=== PATIENT | male | born 1965 | race Caucasian/White ===

== ENCOUNTER 2020-03-17 13:30 | Inpatient (IN) | payer SELFPAY ==
[~2020-03-17 13:30] MED LIST: Iopamidol-370 76% 500 ML 1 ML ONE
--- NOTE | 2020-03-17 15:52 | CT ---
CT ANGIOGRAM THORAX WITH IV CONTRAST AND 3-D RECONSTRUCTIONS CLINICAL INDICATION: Dyspnea. Hyponatremia and hypokalemia. COMPARISON: None FINDINGS: Pulmonary arteries: No filling defects are seen in the pulmonary arteries to suggest a pulmonary embo jason. Aorta: The aorta is normal in caliber without evidence of an aortic dissection. Lungs: Minimal bilateral pleural effusions and associated atelectasis are present. No pulmonary nodul e or mass is seen. Mediastinum: There is no evidence of lymphadenopathy. Thyroid gland: Normal CT appearance. Osseous structures: No acute process. Chest wall: No abnormality visualized. Upper abdomen: Moderate amount of intraperitoneal free fluid is seen in the visualized upper abdomen. The liver demonstrates diminished attenuation relative to the spleen suggesting fatty infiltration. IMPRESSION: 1. No CT evidence of a pulmonary embolus. 2. Minimal bilateral pleural effusions and atelectasis. 3. Moderate ascites partially imaged.
[2020-03-17 17:49] LABS: ALT (SGPT) 12 U/L (8-55); AST (SGOT) 65 U/L (5-34); Albumin 3.4 g/dL (3.5-5.0); Alkaline Phosphatase 87 U/L (40-110); Anion Gap 14 mmol/L (10-20); BUN (Urea Nitrogen) 6 mg/dL (8.4-25.7); Bilirubin, Total 1.8 mg/dL (0.2-1.2); Calc. Creatinine Clearance 0 mL/min (70-130); Calcium 7.7 mg/dL (7.8-10.44); Carbon Dioxide 26 mmol/L (22-29); Chloride 83 mmol/L (98-107); Estimated GFR-MDRD Greater than 90; Globulin 3.6 g/dL (2.4-3.5); Glucose 149 mg/dL (70-105); Potassium 3.1 mmol/L (3.5-5.1); Sodium 120 mmol/L (136-145)
[2020-03-17] MEDS ORDERED: Acetaminophen 325 MG TAB PO PRN (19:19)
[2020-03-17] MEDS ORDERED: Ondansetron ODT 4 MG TAB SL PRN (19:19)
[2020-03-17] MEDS ORDERED: Ondansetron PF 4 MG/2 ML Vial IVP PRN (19:19)
[2020-03-17] MEDS ORDERED: Diazepam 5 MG TAB PO PRN (19:20)
[2020-03-17] MEDS ORDERED: Sodium Chloride 0.9% (PF) 10 ML VIAL FS PRN (19:22)
[2020-03-17] MEDS ORDERED: Diazepam 5 MG TAB PO SCH (19:30)
--- NOTE | 2020-03-17 20:09 | RAD ---
Radiograph abdomen one view: 03/17/2020 7:16 PM HISTORY: 35 year old male with lack of bowel movement for 7 days. Rule out bowel obstruction. COMPARISON: None FINDINGS: There is a small amount of gas in the stomach and the nondistended transverse colon. There is a moder ate to large amount of bowel gas in multiple small bowel loops located centrally within the abdominal cavity. The central location of the bowel gas suggests that there is free intraperitoneal f luid. There is excreted IV contrast material in nondilated renal collecting systems faintly, and in the urinary bladder, from CTA of chest performed earlier today. IMPRESSION: 1. Evidence for ascites. 2. Nonspecific bowel gas pattern without overt signs of bowel obstruction.
[2020-03-17] MEDS ORDERED: Famotidine/PF 20 mg/2ml Vial SLOW IVP SCH (21:00)
[2020-03-17 21:51] LABS: Hemoglobin 8.1 g/dL (14.0-18.0)
[2020-03-17 22:11] LABS: Iron 49 ug/dL (65-175); Iron Binding Capacity, Total 173 mcg/dL (261-462); Magnesium 1.1 mg/dL (1.6-2.6)
[2020-03-17 22:14] LABS: Troponin I 0.012 ng/mL (< 0.028)
[2020-03-17 22:18] LABS: Phosphorus 1.6 mg/dL (2.3-4.7)
[2020-03-17 22:24] LABS: Troponin I 0.015 ng/mL (< 0.028)
[2020-03-17 22:31] LABS: Ferritin 848.67 ng/mL (22-322)
[2020-03-17] MEDS ORDERED: Electrolyte Replacement Protocol FS SCH (22:45)
[2020-03-17 22:49] LABS: Iron 49 ug/dL (65-175); Iron Binding Capacity, Total 173 mcg/dL (261-462)
[2020-03-18] MEDS: Pantoprazole 40 MG VIAL IVP SCH ×3 (00:20→21:13)
[2020-03-18] MEDS ORDERED: Pantoprazole 40 MG VIAL IVP SCH (00:30)
[2020-03-18] MEDS ORDERED: Diazepam 5 MG TAB PO SCH (00:30)
[2020-03-18] MEDS ORDERED: Diazepam 5 MG TAB PO PRN (04:00)
[2020-03-18 04:46] LABS: #Lymphocytes 0.7 thou/uL (1.20-3.40); #Monocytes 0.6 thou/uL (0.11-0.59); #Neutrophils 7.3 thou/uL (1.40-6.50); %Basophils 0.1 % (0.0-1.0); %Eosinophils 0.1 % (0.0-10.0); %Lymphocytes 7.6 % (21.0-51.0); %Monocytes 6.6 % (0.0-10.0); %Neutrophils 85.6 % (42.0-75.0); Hemoglobin 7.2 g/dL (14.0-18.0); Mean Corpuscular HGB CONC 32.8 g/dL (32.0-36.0); Mean Corpuscular Hemoglobin 33.7 pg (27.0-31.0); Mean Platelet Volume 7.7 fL (7.4-10.4); Platelet Count 171 thou/uL (130-400); RBC Distribution Width 12.2 % (11.5-14.5); Red Blood Cell (RBC) Count 2.13 mill/uL (4.70-6.10); White Blood Cell (WBC) Count 8.5 thou/uL (4.8-10.8)
[2020-03-18 05:09] LABS: ALT (SGPT) 12 U/L (8-55); AST (SGOT) 53 U/L (5-34); Albumin 3.1 g/dL (3.5-5.0); Alkaline Phosphatase 80 U/L (40-110); Anion Gap 12 mmol/L (10-20); BUN (Urea Nitrogen) 7 mg/dL (8.4-25.7); Bilirubin, Total 1.1 mg/dL (0.2-1.2); Calc. Creatinine Clearance 84 mL/min (70-130); Calcium 7.8 mg/dL (7.8-10.44); Carbon Dioxide 27 mmol/L (22-29); Chloride 88 mmol/L (98-107); Estimated GFR-MDRD Greater than 90; Globulin 3.4 g/dL (2.4-3.5); Glucose 138 mg/dL (70-105); Potassium 3.1 mmol/L (3.5-5.1); Protein, Total 6.5 g/dL (6.0-8.3); Sodium 124 mmol/L (136-145)
--- NOTE | 2020-03-18 05:47 | PDOC.HHP ---
Hospitalist HPI - History of Present Illness Chest pain History of Present Illness: Patient presents complaining of chest pain. Poor historian and unable to pin point how often the pain has occurred or describe it. He states it is non- radiating. At present he is pain free. At its worse its been a 7/10 in severity. He is unsure how long it lasts. States he has had some shortness of breath as well. Denies having a cough or hemoptysis. No headaches or dizziness. Has not noted any lower extremity pain or swelling. Admits to drinking 4-5 beers a day. Denies any history of withdrawal seizures/ tremors. Reports being afebrile in recent days. No recent diarrhea, nausea or vomiting. Complains of constipation and has not had a bowel movement in several days. ED Course: Patient transferred from [facility] ED where he was treated for low potassium and low sodium. He had an EKG done showing normal ST segments and T waves. COVID testing was done and came back negative. He also had a CTA of the chest showing no evidence of PE, minimal bilateral pleural effusions and atelectasis. Also noted to have moderate ascites. Labs were notable for low potassium and low sodium. Hospitalist ROS - Review of Systems Constitutional: denies: fever, chills, sweats, weakness, malaise, other Eyes: denies: pain, vision change, conjunctivae inflammation, eyelid inflammation, redness, other ENT: denies: ear pain, ear discharge, nose pain, nose discharge, nose congestion , mouth pain, mouth swelling, throat pain, throat swelling, other Respiratory: reports: shortness of breath. denies: cough, dry, hemoptysis, SOB with excertion, pleuritic pain, sputum, wheezing, other Cardiovascular: reports: chest pain. denies: palpitations, orthopnea, paroxysmal noc. dyspnea, edema, light headedness, other Gastrointestinal: reports: other (abdominal dstention, long standing). denies: nausea, vomiting, abdominal pain, diarrhea, constipation, melena, hematochezia Genitourinary: denies: dysuria, frequency, incontinence, hematuria, retention, other Musculoskeletal: denies: neck pain, shoulder pain, arm pain, back pain, hand pain, leg pain, foot pain, other Skin: denies: rash, lesions, miriam, bruising, other Neurological: denies: weakness, numbness, incoordination, change in speech, confusion, seizures, other - Medication Medications: Active Medications Generic Name Dose Route Start Last Admin Trade Name Duy PRN Reason Stop Dose Admin Pantoprazole Sodium 40 mg 03/17/20 21:00 03/18/20 00:20 Protonix IVP Not Given Q12HR [facility] Hospitalist History - Past Medical History Source: patient Cardiac: reports: no pertinent history Pulmonary: reports: no pertinent history DIGITAL AD TRAFFICKER: reports: no pertinent history Gastrointestinal: reports: no pertinent history Heme/Onc: reports: no pertinent history Hepatobiliary: reports: no pertinent history Psych: reports: no pertinent history Musculoskeletal: reports: no pertinent history Rheumatologic: reports: no pertinent history Infectious Disease: reports: no pertinent history ENT: reports: no pertinent history Renal/: reports: no pertinent history Endocrine: reports: no pertinent history Dermatology: reports: no pertinent history - Past Surgical History Past Surgical History: reports: no pertinent history - Family History Family History: reports: no pertinent history - Social History Smoking Status: Never smoker Alcohol: reports: Heavy Drugs: reports: none Living Situation: Alone Activity level: independent ambulation - Exam General Appearance: NAD Eye: PERRL, anicteric sclera ENT: normocephalic atraumatic, dry oral mucosa Neck: supple, no lymphadenopathy Heart: RRR, normal peripheral pulses Respiratory: CTAB, no wheezes, no rales, no ronchi, normal chest expansion Gastrointestinal: soft, non-tender, normal bowel sounds, no palpable masses, no guarding, no rigidity Gastrointestinal - other findings: distention Extremities: no edema Skin: normal turgor, no lesions, no rashes Neurological: cranial nerve grossly intact, normal sensation to touch, no weakness, no focal deficits Hospitalist Results - Labs Result Diagrams: 03/18/20 04:16 03/18/20 04:16 Lab results: WBC 8.5 thou/uL (4.8-10.8) 03/18/20 04:16 Hgb 7.2 g/dL (14.0-18.0) L 03/18/20 04:16 Hct 21.9 % (42.0-52.0) L 03/18/20 04:16 MCV 103.0 fL (78.0-98.0) H 03/18/20 04:16 Plt Count 171 thou/uL (130-400) 03/18/20 04:16 Neutrophils % 85.6 % (42.0-75.0) H 03/18/20 04:16 Sodium 124 mmol/L (136-145) L 03/18/20 04:16 Potassium 3.1 mmol/L (3.5-5.1) L 03/18/20 04:16 Chloride 88 mmol/L (98-107) L 03/18/20 04:16 Carbon Dioxide 27 mmol/L (22-29) 03/18/20 04:16 BUN 7 mg/dL (8.4-25.7) L 03/18/20 04:16 Creatinine 0.77 mg/dL (0.7-1.3) 03/18/20 04:16 Glucose 138 mg/dL (70-105) H 03/18/20 04:16 Calcium 7.8 mg/dL (7.8-10.44) 03/18/20 04:16 Total Bilirubin 1.1 mg/dL (0.2-1.2) 03/18/20 04:16 AST 53 U/L (5-34) H 03/18/20 04:16 ALT 12 U/L (8-55) 03/18/20 04:16 Alkaline Phosphatase 80 U/L (40-110) 03/18/20 04:16 Troponin I 0.015 ng/mL (< 0.028) 03/17/20 21:29 B-Natriuretic Peptide 101.4 pg/mL (0-100) H 03/17/20 21:30 Serum Total Protein 6.5 g/dL (6.0-8.3) 03/18/20 04:16 Albumin 3.1 g/dL (3.5-5.0) L 03/18/20 04:16 - Radiology Interpretation Chest x-ray Status: report reviewed by il Hospitalist H&P A/P - Problem (1) Chest pain Code(s): R07.9 - CHEST PAIN, UNSPECIFIED Status: Acute (2) Cough Code(s): R05 - COUGH Status: Acute (3) Shortness of breath Code(s): R06.02 - SHORTNESS OF BREATH Status: Acute (4) Abdominal ascites Code(s): R18.8 - OTHER ASCITES Status: Acute (5) Anemia Code(s): D64.9 - ANEMIA, UNSPECIFIED Status: Acute (6) Hyponatremia Code(s): E87.1 - HYPO-OSMOLALITY AND HYPONATREMIA Status: Acute (7) Hypokalemia Code(s): E87.6 - HYPOKALEMIA Status: Acute - Plan Plan: Cardiac monitoring. Trend troponins. BNP added on to labs as well as Mg+. Repeat electrolytes and replace as needed. Obtain urine Na+, urine K+ and urine osmolality. Nephrology consult placed. Per Dr. Zeng will hold further IV fluids, to be managed by Nephrology team. Given anemia, check stools for occult blood. Will obtain KUB given distention with no BM in days. Type & Screen, repeat H/H. Will start IV protonix. Iron studies ordered. History of heavy alcohol use. ASE protocol ordered. DVT prophylaxis with mechanical SCDs. CODE STATUS FULL No MPOA established.
[2020-03-18] MEDS ORDERED: Potassium Phosphate 15 MMOL in Sodium Chloride 0.9% 100 ML IVPB SCH (06:45)
[2020-03-18] MEDS ORDERED: Potassium Chloride 20 MEQ in Premix Bag 1 BAG IVPB SCH (07:00)
[2020-03-18] MEDS ORDERED: Electrolyte Replacement Protocol FS PRN (08:00)
[2020-03-18] MEDS ORDERED: Magnesium Sulfate 4 GM in Sodium Chloride 0.9% 250 ML 250 ML IVPB SCH (08:00)
[2020-03-18 08:21] LABS: Phosphorus 1.3 mg/dL (2.3-4.7)
[2020-03-18] MEDS: Potassium Chloride 20 MEQ TAB PO SCH ×3 (08:52→15:29)
[2020-03-18] MEDS: Magnesium Oxide 400 MG TAB PO SCH (08:52)
[2020-03-18] MEDS: Folic Acid 1 MG TAB PO SCH (08:53)
[2020-03-18] MEDS: Multivitamin W/ Minerals 1 TAB PO SCH (08:54)
[2020-03-18] MEDS: Thiamine 100 MG TAB PO SCH (08:54)
--- NOTE | 2020-03-18 14:19 | CON ---
DATE OF CONSULTATION: 03/18/2020 SERVICE: Nephrology. REASON FOR CONSULTATION: Hyponatremia and hypokalemia. REQUESTING PROVIDER: TORY Quinn HISTORY OF PRESENT ILLNESS: A 55-year-old male with known history of chronic alcohol use, admitted on transfer from [facility] for further evaluation and treatment of chest pain. The patient reportedly presented at the transferring facility with acute onset of worsening chest pain associated with shortness of breath. Symptoms reportedly have improved. He also was found to have hyponatremia and hypokalemia, necessitating Nephrology consult. The patient denied nausea or vomiting, fever, chills, or leg swelling. He admitted to abdominal enlargement, which has improved. He, however, has not had a bowel motion in about 2 weeks. He also reported weight loss of about 10 pounds in the last few months. He admitted to poor oral intake since about several months corresponding to when his spouse . He admitted using alcohol every day about minimum of 3 beers to about 5 beers depending on the situation. He denied prior alcohol withdrawal symptoms or seizures. PAST MEDICAL HISTORY: Chronic alcohol use. PAST SURGICAL HISTORY: None. FAMILY HISTORY: The patient lives alone currently. He reported history of diabetes and coronary artery disease in mother and unknown cancer in father. SOCIAL HISTORY: The patient lives alone. Spouse is . Drinks alcohol daily. Denied recreational drug use or smoking. ALLERGIES: NO KNOWN DRUG ALLERGIES REPORTED. MEDICATIONS: Prior to hospital medications, none. REVIEW OF SYSTEMS: A 12-point review of system performed was negative other than pertinent positives and negatives included in the history of present illness. PHYSICAL EXAMINATION: VITAL SIGNS: Temperature 97.0, pulse 86, respiratory rate 16, SpO2 of 99% on room air, and blood pressure is 111/69. GENERAL: Thin, small-framed middle-age male, in no obvious distress. Afebrile, anicteric, acyanotic. HEENT: Normocephalic and atraumatic. Oral mucosa is moist. NECK: Supple with no JVD. CARDIOVASCULAR: Regular rhythm and rate with normal heart sounds 1 and 2. RESPIRATORY: Fair air entry bilaterally with no obvious crackle or rhonchi or use of accessory muscles. Bibasilar transmitted breath sound is noted. GI: Full, soft, nontender, nondistended with normal bowel sounds. MUSCULOSKELETAL: Extremities, grossly normal looking, atraumatic with no obvious edema or erythema. Distal pulses are palpable. EPIC INTERFACE ANALYST: Conscious, alert, and oriented x3 with appropriate mental status. The patient is conversational with good insight. Cranial nerves 2 through 12 are grossly intact. Very mild tremor noted. DIAGNOSTIC DATA: CBC today showed WBC count of 8.5, hemoglobin of 7.2, MCV of 103, platelet of 171. Note that hemoglobin has gone down from 8.0 on presentation to 7.2 currently. Chemistry today showed sodium 124, potassium 3.1, chloride 88, CO2 of 27, BUN 7, creatinine 0.77, glucose 138, calcium 7.8, bilirubin 1.1, AST 53, ALT 12, alkaline phosphatase 80, total protein 6.5, albumin 3.1. Note that sodium was 123 on presentation, but it did dip to 120 before increasing to 124 earlier this morning. The potassium on presentation also was 3.0. Magnesium currently is 1.4, phosphorus is 1.3. Serum osmolality on presentation was 261 while urine osmolality was 253. Urine sodium was less than 20. ASSESSMENT: 1. Hyponatremia: Most likely due to poor solute intake with chronic use of alcohol consistent with beer potomania. Chronic hypokalemia also limited the ability of the kidney to excrete free water. 2. Hypokalemia due to poor oral intake and presumed alcohol-induced diuresis. 3. Hypomagnesemia from poor oral intake. 4. Hypophosphatemia from poor oral intake. 5. Chronic alcohol abuse. High risk for alcohol withdrawal. 6. Chest pain: Resolved. 7. Protein-calorie malnutrition. PLAN: 1. I agree with discontinuation of normal saline. 2. We will replete serum potassium and magnesium. This will help the kidneys to excrete free water. We will plan to give at least 120 mEq of potassium chloride today. 3. We will also replete serum phosphorus with potassium phosphate. 4. We will give magnesium sulfate to correct hypomagnesemia. 5. We will also give a Fleet enema as the patient is constipated for several weeks. 6. Alcohol withdrawal treatment as per primary attending. 7. We will monitor electrolytes serially and provide further supplementation as needed. 8. Further treatment to follow depending on hospital course. 9. There is no need for IV fluids at this point as the patient is euvolemic. 10. [place] solute intake is advised. 11. We will also start the patient on Ensure. Job ID: [id number]
[2020-03-18 14:52] LABS: Anion Gap 15 mmol/L (10-20); BUN (Urea Nitrogen) 8 mg/dL (8.4-25.7); Calc. Creatinine Clearance 81 mL/min (70-130); Calcium 8.3 mg/dL (7.8-10.44); Carbon Dioxide 25 mmol/L (22-29); Chloride 91 mmol/L (98-107); Estimated GFR-MDRD Greater than 90; Glucose 106 mg/dL (70-105); Potassium 3.9 mmol/L (3.5-5.1); Sodium 127 mmol/L (136-145)
--- NOTE | 2020-03-18 21:34 | PDOC.HOSPP ---
- Subjective Encounter Date: 03/18/20 Encounter Time: 09:00 Subjective: poor, unreliable historian, versions changed with different physician. this morning, requests to leave. explained his conditions and the need for further treatment. - Objective Vital Signs & Weight: Vital Signs (12 hours) Temp Pulse Resp BP Pulse Ox 03/18/20 17:11 98.2 F 90 16 99/67 97 03/18/20 13:00 97.2 F L 88 16 100/60 100 Weight Admit Weight 123 lb 1.6 oz Weight 123 lb 1.6 oz I&O: 03/17/20 03/18/20 03/19/20 06:59 06:59 06:59 Intake Total 1300 Balance 1300 Result Diagrams: 03/18/20 04:16 03/18/20 14:21 Hospitalist ROS - Review of Systems Constitutional: denies: fever, chills, sweats Respiratory: denies: cough, dry, shortness of breath Cardiovascular: denies: chest pain, palpitations, orthopnea, paroxysmal noc. dyspnea Gastrointestinal: denies: nausea, vomiting, abdominal pain, diarrhea Genitourinary: denies: dysuria, frequency, incontinence - Medication Medications: Active Medications Generic Name Dose Route Start Last Admin Trade Name Freq PRN Reason Stop Dose Admin Folic Acid 1 mg 03/18/20 09:00 03/18/20 08:53 Folvite PO 1 mg DAILY BHUMIKA Administration Iron/Minerals/Multivitamins 1 tab 03/18/20 09:00 03/18/20 08:54 Theragran M PO 1 tab DAILY BHUMIKA Administration Magnesium Oxide 400 mg 03/18/20 09:00 03/18/20 08:52 Magnesium Oxide PO 400 mg DAILY BHUMIKA Administration Pantoprazole Sodium 40 mg 03/17/20 21:00 03/18/20 21:13 Protonix IVP 40 mg Q12HR BHUMIKA Administration Thiamine HCl 100 mg 03/18/20 09:00 03/18/20 08:54 Thiamine PO 100 mg DAILY BHUMIKA Administration - Exam General Appearance: NAD, awake alert Eye: PERRL, anicteric sclera Neck: no JVD Heart: RRR, no murmur, no gallops, no rubs Respiratory: CTAB, no wheezes, no rales, no ronchi Gastrointestinal: non-tender, normal bowel sounds Gastrointestinal - other findings: distended, shifting dulness Extremities: no edema Psychiatric: normal affect, normal behavior, A&O x 3 Hosp A/P - Plan #noncardiac chest pain -resolved; trop and ekg not c/w ACS #constipation -patient reports not having bowel movement for weeks but poor historian; Abd x- ray shows no significant fecal load, impaction, or obstruction -senna/doc #hypoosmolal hyponatremia -likely reduced oral intake in cotext of alcohol abuse; beer potomania -neprhology onboard, appreciated recs #macrocytic anemia #ascites -Bonacini cirrhosis discriminant score 7; may have alcoholic cirrhosis -hepatic U/S -hepatitis C full code
[2020-03-19 04:51] LABS: Phosphorus 1.4 mg/dL (2.3-4.7)
[2020-03-19 04:52] LABS: ALT (SGPT) 14 U/L (8-55); AST (SGOT) 63 U/L (5-34); Albumin 3.1 g/dL (3.5-5.0); Alkaline Phosphatase 89 U/L (40-110); Anion Gap 11 mmol/L (10-20); BUN (Urea Nitrogen) 8 mg/dL (8.4-25.7); Bilirubin, Total 0.8 mg/dL (0.2-1.2); Calc. Creatinine Clearance 88 mL/min (70-130); Calcium 7.7 mg/dL (7.8-10.44); Carbon Dioxide 25 mmol/L (22-29); Chloride 94 mmol/L (98-107); Estimated GFR-MDRD Greater than 90; Globulin 3.4 g/dL (2.4-3.5); Glucose 92 mg/dL (70-105); Magnesium 2.3 mg/dL (1.6-2.6); Potassium 4.3 mmol/L (3.5-5.1); Protein, Total 6.5 g/dL (6.0-8.3); Sodium 126 mmol/L (136-145)
[2020-03-19 05:07] LABS: Hep C IgG Ab Non-Reactive (NonReactive); Hep C Index 0.13 S/CO (0-0.79)
[2020-03-19] MEDS ORDERED: Potassium Phosphate 15 MMOL in Sodium Chloride 0.9% 250 ML 250 ML IVPB SCH (05:45)
--- NOTE | 2020-03-19 08:11 | ULT ---
ULTRASOUND ABDOMEN COMPLETE: DATE: 03/18/2020 HISTORY: Abdominal pain, nausea, and vomiting in 55-year-old male. Liver disease. TECHNIQUE: Grayscale ultrasound evaluation of the liver, gallbladder, spleen, pancreas, common duct, kidneys, ab dominal aorta, and inferior vena cava (IVC). FINDINGS: Small amount of free fluid throughout the abdominal cavity, and moderate amount in the pelvic cavity. Liver is diffusely mildly homogeneously hyperechoic, which may or may not represent hepatocellular di sease. Mildly enlarged. Slightly lobular margins. Bilateral kidneys: No hydronephrosis. Spleen: No splenomegaly. Gallbladder: Contracted. Wall thickness 4 mm. No large gallstone identified. Common duct: 3 mm. Pancreas: Nonspecific sonographic appearance. No pancreatic ductal dilation. IVC: Patent where visualized. Abdominal aorta: Poorly visualized. IMPRESSION: 1) small to moderate volume of ascites. 2) hepatomegaly. 3) contracted gallbladder
[2020-03-19] MEDS: Pantoprazole 40 MG VIAL IVP SCH (10:02)
[2020-03-19] MEDS: Thiamine 100 MG TAB PO SCH (10:02)
[2020-03-19] MEDS: Folic Acid 1 MG TAB PO SCH (10:02)
[2020-03-19] MEDS: Magnesium Oxide 400 MG TAB PO SCH (10:02)
[2020-03-19] MEDS: Multivitamin W/ Minerals 1 TAB PO SCH (10:02)
[2020-03-19] MEDS: PHOS-NAK 1 PKT PACK PO SCH ×2 (10:44→12:37)
--- NOTE | 2020-03-19 11:24 | PRG ---
DATE OF SERVICE: 03/19/2020 SERVICE: Nephrology. SUBJECTIVE: A 55-year-old male seen in followup for multiple electrolyte derangements. The patient is a chronic alcoholic, was admitted due to chest pain, which has subsided. The patient feels a lot better. Tolerating oral intake well. OBJECTIVE: VITAL SIGNS: Temperature 97.4, pulse 105, respiratory rate 14, SpO2 of 98% on room air, blood pressure is 99/63. I and O in the last 24 hours showed total intake of 1700. Output was not measured. GENERAL: Male patient in no obvious distress. Afebrile. Anicteric. Acyanotic. HEENT: Normocephalic, atraumatic. Oral mucosa is moist. CARDIOVASCULAR: Regular rhythm and rate with normal heart sounds one and two. RESPIRATORY: Fair air entry bilaterally with no crackle or rhonchi or use of accessory muscles. GI: Full, soft, nontender, nondistended with normal bowel sounds. EXTREMITIES: Grossly normal looking atraumatic with no obvious edema or erythema. DIAGNOSTIC DATA: Chemistry showed sodium 126, potassium 4.3, chloride 94, CO2 of 25, BUN 8, creatinine 0.73, glucose 92, calcium 7.7, phosphorus 1.4, magnesium 2.3, total protein 6.5, albumin 3.1. ASSESSMENT: 1. Hyponatremia: Due to poor solute intake and beer potomania. Improving. Slow correction with increase in solute intake is anticipated. Aggressive correction is not recommended in this patient. Contribution from persistent hypokalemia is also contributory. 2. Hypokalemia: Repleted. 3. Hypomagnesemia: Repleted. 4. Hypophosphatemia: Due to poor oral intake: Persistent. 5. Hypocalcemia, concerning for vitamin D deficiency. PLAN: 1. We will replete serum phosphorus with potassium phosphate. 2. We will also get vitamin D level with a view to starting vitamin D supplementation, if indicated. 3. Given that the patient is hemodynamically stable, he can be discharged from Nephrology point of view with oral supplementation of phosphorus and calcium, and repeat lab in 1 week. Job ID: [id number]
[2020-03-19 13:53] VITALS: BMI 18.3
[2020-03-19 14:52] VITALS: BP 107/75; TEMP 98.3
--- NOTE | 2020-03-21 07:40 | PQF ---
CLINICAL DOCUMENTATION CLARIFICATION FORM: Dear : Antione Pino Date / Time: 03/21/2020 Please exercise your independent, professional judgment in responding to the clarification form. Clinical indicators are provided on the bottom of this form for your review Please check appropriate box(es) to clarify if the following diagnosis has been ruled in our ruled out: Alcoholic cirrhosis [ ] Ruled in diagnosis [ ] Continue to treat [ ] Resolved [ ] Ruled out diagnosis [ ] Improving [ x ] Cannot rule out diagnosis [ ] Other diagnosis [ ] Unable to determine In addition, please specify: Present on Admission (POA): [ x ] Yes [ ] No [ ] Unable to determine To be completed by CDI/Coding staff for physician review: Present Clinical Indicators - Signs / Symptoms / Labs Results and Location in Medical Record [ x ] Ascites Bonacini cirrhosis discriminant score 7, may have alcoholic cirrhosis Progress note 03/18 by Antione Pino MD [ x ] Also noted to have moderate ascites H&P [ x ] Chronic alcohol abuse. High risk for alcohol withdrawal Consult 03/18 by Gianluca Amin Obi Present Risk Factors Results and Location in Medical Record [ x ] Hepatitis C Progress note 03/18 by Antione Pino MD [ x ] Chronic alcohol abuse Consult 03/18 by Gianluca Amin Obi Present Treatments Results and Location in Medical Record [ x ] Abdominal ultrasound 03/18 by Yogi Andrade MD Abdominal ultrasound CDS/Lighting Specialist Signature: [email or web address] Phone #: Date/Time: 03/21/2020 This is a permanent part of the Medical Record [facility]
--- NOTE | 2020-03-21 07:56 | PQF ---
CLINICAL DOCUMENTATION CLARIFICATION FORM: Dear : Antione Pino Date / Time: 03/21/2020 Please exercise your independent, professional judgment in responding to the clarification form. Clinical indicators are provided on the bottom of this form for your review Please check appropriate box(es): [ ] Protein Calorie Malnutrition: [ ] Mild [ ] Moderate [ ] Severe [ ] Other Malnutrition (please specify) __ [ ] Underweight without malnutrition [ ] Other diagnosis [ x ] Unable to determine In addition, please specify: Present on Admission (POA): [ x ] Yes [ ] No [ ] Unable to determine To be completed by CDI/Coding staff for physician review: Present Clinical Indicators - Signs / Symptoms / Labs Results and Location in Medical Record [ x ] Protein-calorie malnutrition. Will monitor electrolytes serially and provide further supplementation as needed. We will also start the patient on Ensure Consult 03/18/20 by Gianluca Jimenez MD w [ x ] w BMI of 18.3 w Reports [ x ] Albumin is 3.4 (L) on 03/17; albumin/globulin ratio is 0.9 (L) Laboratory Present Risk Factors Results and Location in Medical Record [ x ] Alcoholic cirrhosis Progress note 03/18 by Antione Pino MD [ x ] Hypophosphatemia and hypomagnesemia from poor oral intake Consult 03/18/20 by Gianluca Jimenez MD Present Treatments Results and Location in Medical Record [ x ] Will start the patient on Ensure Consult 03/18/20 by Gianluca Jimenez MD [ x ] Provide further supplementation as needed Consult 03/18/20 by Gianluca Jimenez MD CDS/Cardiovascular Lab Director Signature: [email or web address] Phone #: Date/Time: 08/2020 Moderate Malnutrition (in acute illness) ? Energy Intake: <75% of estimated energy requirement for > 7 days ? Weight Loss: 1-2%/1 week; 5%/ 1 month; 7.5%/3 months ? Other: mild body fat loss; mild muscle mass loss; mild fluid accumulation; Severe Malnutrition (in acute illness) ? Energy Intake: ? 50% of estimated energy requirement for ? 5 days ? Weight Loss: >2%/1 week; >5%/1 month; >7.5%/3 months ? Other: moderate body fat loss; moderate muscle mass loss; moderate- severe fluid accumulation; measurably reduced beet flumer strength Moderate Malnutrition (in chronic illness) ? Energy Intake: <75% of estimated energy requirement for ?1 month ? Weight Loss: 5%/1 month; 7.5%/3 months; 10%/6 months; 20%/1 year ? Other: mild body fat loss; mild muscle mass loss; mild fluid accumulation Severe Malnutrition (in chronic illness) ? Energy Intake: ?75% of estimated energy requirement for ?1 month ? Weight Loss: >5%/1 month; >7.5%/3 months; >10%/6 months; >20%/1 year ? Other: severe body fat loss; severe muscle mass loss; severe fluid accumulation; measurably reduced beet flumer strength This is a permanent part of the Medical Record [facility]
== END 2020-03-19 15:31 | disposition home or self-care (01) | DRG 433 ==
LOC: ERS 13:30 → OBSVTOIN 23:37 → 2NO 23:37
PROVIDERS: ADMIT Internal Medicine; ATTEND Internal Medicine
DX: K70.31 Alcoholic cirrhosis of liver with ascites (principal); E87.1 Hypo-osmolality and hyponatremia; E46 Unspecified protein-calorie malnutrition; Z68.1 Body mass index [BMI] 19.9 or less, adult; J90 Pleural effusion, not elsewhere classified; J98.11 Atelectasis; R07.89 Other chest pain; E87.6 Hypokalemia; F10.10 Alcohol abuse, uncomplicated; K59.00 Constipation, unspecified; D53.9 Nutritional anemia, unspecified; E83.51 Hypocalcemia; B19.20 Unspecified viral hepatitis C without hepatic coma; E83.42 Hypomagnesemia; E83.39 Other disorders of phosphorus metabolism
CPT/HCPCS: 36415; 71275; 74018; 76705; 80053; 82274; 82306; 82607; 82728; 82746; 83540; 83550; 83735; 83880; 83930; 83935; 84100; 84133; 84300; 84443; 85025; 86803; 86850; 86900; 86901; 90471; 90732; 93005; 96365; 96366; 96368; 96375; 96376; C9113; G0009; G0378; J3475; J3490; J7050; Q9967; U0002

== ENCOUNTER 2020-08-21 19:10 | Inpatient (IN) | payer SELFPAY ==
[2020-08-21] MEDS ORDERED: Ondansetron PF 4 MG/2 ML Vial IVP PRN (23:25)
--- NOTE | 2020-08-21 23:56 | PDOC.BPN ---
- Brief Progress Note [id number] HP dictated
[2020-08-22] MEDS: cefTRIAXone\\ROCEPHIN 1 GM in Sodium Chloride 0.9% 100 ML IVPB SCH ×2 (00:15→23:00)
--- NOTE | 2020-08-22 02:50 | HP ---
CHIEF COMPLAINT: Abdominal pain and swelling. HISTORY OF PRESENT ILLNESS: Mr. Salazar is a 55-year-old male with past medical history of alcoholic liver cirrhosis, ascites, hyponatremia, alcoholism, is being transferred from [facility] after he presented there with abdominal pain and swelling. The patient is a very poor historian. Workup in the emergency room, the patient had significant abdominal swelling/ascites. Lab work, the patient was found to have electrolyte abnormalities with hyponatremia with a sodium of 120, hypokalemia with a potassium of 2.9, hypomagnesemia with magnesium of 1.2. Request to transfer the patient to our medical facility for further management. The patient denies fever or chills. He is feeling generalized weak. The patient is being admitted to the hospital for further management. PAST MEDICAL HISTORY: As mentioned above in history of present illness. PAST SURGICAL HISTORY: Reviewed and not pertinent. FAMILY HISTORY: Reviewed and noncontributory. SOCIAL HISTORY: The patient continues to drink alcohol every day. ALLERGIES: NO KNOWN ALLERGIES. REVIEW OF SYSTEMS: Review of 14 systems negative except what is mentioned in history of present illness. PHYSICAL EXAMINATION: GENERAL: The patient is awake, alert, in moderate distress. VITAL SIGNS: Blood pressure 124/84, pulse is 95, respiratory rate is 18, temperature is 97.7, and oxygen saturation is 99% on room air. HEAD AND NECK: Normocephalic and atraumatic. Neck is supple. CHEST: Decreased air entry in both bases. HEART: S1 and S2. Regular. ABDOMEN: Severely distended, mild diffuse tenderness, bowel sounds present. Positive for shifting dullness. EXTREMITIES: Positive for edema. NEUROLOGIC: Awake, alert, moving extremities. PSYCHIATRIC: Unable to assess. EXTREMITIES: Unable to assess. LABORATORY DATA: As mentioned above in history of present illness. ASSESSMENT AND PLAN: 1. Liver cirrhosis with ascites. 2. Abdominal pain. 3. Hyponatremia. The patient has history of chronic hyponatremia. 4. Hypokalemia. 5. Hypomagnesemia. 6. Alcoholic liver disease. PLAN: 1. Admit. 2. Potassium was replaced in the emergency room. 3. Magnesium was replaced in the emergency room. 4. Ultrasound-guided paracentesis. 5. Consult GI in a.m. for evaluation and further recommendations. 6. Monitor and correct electrolytes. 7. DVT prophylaxis as appropriate. 8. Expected length of stay, 2 midnights or more. Job ID: [id number]
[2020-08-22] MEDS: HYDROcodone/Acetaminophen 5/325 mg Tablet PO PRN ×2 (03:15→19:49)
[2020-08-22 03:39] VITALS: BMI 19.7
[2020-08-22 05:12] LABS: #Lymphocytes 1.1 thou/uL (1.20-3.40); #Monocytes 0.5 thou/uL (0.11-0.59); #Neutrophils 3.9 thou/uL (1.40-6.50); %Basophils 0.5 % (0.0-1.0); %Eosinophils 0.8 % (0.0-10.0); %Lymphocytes 19.1 % (21.0-51.0); %Monocytes 8.4 % (0.0-10.0); %Neutrophils 71.2 % (42.0-75.0); Hemoglobin 8.7 g/dL (14.0-18.0); Mean Corpuscular HGB CONC 34.5 g/dL (32.0-36.0); Mean Corpuscular Hemoglobin 33.4 pg (27.0-31.0); Mean Platelet Volume 6.1 fL (7.4-10.4); Platelet Count 207 thou/uL (130-400); RBC Distribution Width 12.2 % (11.5-14.5); White Blood Cell (WBC) Count 5.5 thou/uL (4.8-10.8)
[2020-08-22 05:37] LABS: ALT (SGPT) 7 U/L (8-55); AST (SGOT) 30 U/L (5-34); Albumin 2.6 g/dL (3.5-5.0); Alkaline Phosphatase 92 U/L (40-110); Anion Gap 12 mmol/L (10-20); BUN (Urea Nitrogen) 12 mg/dL (8.4-25.7); Bilirubin, Total 1.2 mg/dL (0.2-1.2); Calc. Creatinine Clearance 69 mL/min (70-130); Calcium 8.1 mg/dL (7.8-10.44); Carbon Dioxide 29 mmol/L (22-29); Chloride 83 mmol/L (98-107); Globulin 4.1 g/dL (2.4-3.5); Glucose 97 mg/dL (70-105); Potassium 3.3 mmol/L (3.5-5.1); Protein, Total 6.7 g/dL (6.0-8.3); Sodium 121 mmol/L (136-145)
[2020-08-22 07:57] LABS: Platelet Count 239 thou/uL (130-400)
[2020-08-22 07:59] LABS: INR-International Normal Ratio 1.2; Prothrombin Time 15.6 sec (12.0-14.7)
[2020-08-22 08:00] LABS: PTT 40.4 sec (22.9-36.1)
[2020-08-22 08:14] LABS: SARS-CoV-2 MS2 Positive; SARS-CoV-2 N Gene Negative; SARS-CoV-2 S Gene Negative; SARS-CoV-2 by NAA Not Detected (NotDetected); SARS-CoV-2 orf1ab Negative
[2020-08-22] MEDS: Spironolactone 100 MG TAB PO SCH (09:21)
[2020-08-22] MEDS: Famotidine/PF 20 mg/2ml Vial SLOW IVP SCH ×2 (09:21→19:50)
--- NOTE | 2020-08-22 09:32 | ULT ---
LIMITED ABDOMINAL ULTRASOUND: Date: 08/22/2020 COMPARISON: 03/18/2020. HISTORY: Ascites. TECHNIQUE: Multiplanar Ross scale images were obtained in limited ultrasound of all four quadrants of the abdome n. FINDINGS: The patient has a moderate to large amount of ascites. This is increased compared to the exam from . IMPRESSION: Moderate to large ascites. The patient appears to have adequate fluid for a paracentesis. POS: EAA
--- NOTE | 2020-08-22 11:59 | PDOC.HOSPP ---
- Subjective Encounter Date: 08/22/20 Encounter Time: 11:30 Subjective: no prior paracentesis, says he still drinks 1-2 glasses of wine lives alone, is in touch with one son of the 2 he has. - Objective Vital Signs & Weight: Vital Signs (12 hours) Temp Pulse Resp BP Pulse Ox 08/22/20 07:47 97.7 F 89 20 102/72 95 08/22/20 03:32 97.8 F 88 16 100/71 98 08/22/20 00:23 97.8 F 80 16 113/80 98 Weight Weight 126 lb 1.6 oz I&O: 08/21/20 08/22/20 08/23/20 06:59 06:59 06:59 Intake Total 880 Balance 880 Result Diagrams: 08/22/20 07:43 08/22/20 04:54 Hospitalist ROS - Medication Medications: Active Medications Generic Name Dose Route Start Last Admin Trade Name Freq PRN Reason Stop Dose Admin Hydrocodone Bitart/Acetaminophen 1 tab 08/22/20 03:06 08/22/20 03:15 Hydrocodone/Acetaminophen 5/325 Mg Tablet PO 1 tab Q4H PRN Administration Moderate Pain (4-6) Famotidine 20 mg 08/22/20 09:00 08/22/20 09:21 Famotidine/Pf 20 Mg/2ml Vial SLOW IVP 20 mg Q12HR BHUMIKA Administration Ceftriaxone Sodium 1 gm/ 100 mls @ 200 mls/hr 08/21/20 23:59 08/22/20 00:15 Sodium Chloride IVPB 100 mls Q24HR BHUMIKA Administration Spironolactone 100 mg 08/22/20 09:00 08/22/20 09:21 Spironolactone 100 Mg Tab PO 100 mg DAILY BHUMIKA Administration - Exam General Appearance: awake alert, ill appearing Eye: PERRL ENT: no oropharyngeal lesions, dry oral mucosa Neck: supple, no JVD Heart: RRR, no murmur Respiratory: no wheezes, no rales Gastrointestinal: normal bowel sounds Gastrointestinal - other findings: has massive ascites Extremities: no cyanosis, 1+ LE edema Neurological: cranial nerve grossly intact, no focal deficits Psychiatric: normal affect, A&O x 3 Hosp A/P (1) Alcoholic cirrhosis of liver with ascites Code(s): K70.31 - ALCOHOLIC CIRRHOSIS OF LIVER WITH ASCITES Status: Acute (2) Anemia Code(s): D64.9 - ANEMIA, UNSPECIFIED Status: Chronic Qualifiers: Anemia type: other cause (3) Hypokalemia Code(s): E87.6 - HYPOKALEMIA Status: Acute (4) Hyponatremia Code(s): E87.1 - HYPO-OSMOLALITY AND HYPONATREMIA Status: Acute - Plan will have paracentesis in am hep C was -ve in march, will obtain complete hepatitis panel counselled regarding complete cessation of alcohol await ascitic fluid w/u is on ceftriaxone and spironolactone, will add nadolol later alb is 2.6, inr is 1.1, sod is 121, Hb is 8g, platelets are 207. hemostable
--- NOTE | 2020-08-22 17:44 | CON ---
DATE OF CONSULTATION: 08/22/2020 REASON FOR CONSULTATION: Ascites with probable cirrhosis of the liver. CONSULTING PROVIDER: Dr. Nancy Garnica. HISTORY OF PRESENT ILLNESS: The patient is a 55-year-old male with past medical history of hypo-osmolar hyponatremia, alcoholic cirrhosis, and resultant ascites, initially presenting with lower extremity pain. He states that he was in his usual state of health until approximately 3 days ago when he sustained a fall and injury to his left lower extremity and this prompted him to go into the [facility] for further evaluation. While in the ER, the patient was noted to have significant ascites in addition to hyponatremia and ultimately transferred to [facility] for further evaluation. Currently, the patient states that he is feeling better with improvement of his left lower extremity pain and has had significant abdominal distention in his abdomen for approximately last 6 months. He added that he was admitted to the hospital around 6 months ago with the doctors telling him at that time that he did have ascites and most likely cirrhosis of the liver. He was ultimately discharged to home at that time, and between then and now, the patient has not followed up with his primary care physician nor has he complied with alcohol cessation. Currently, the patient states that he is drinking approximately 1 to 2 drinks per day, but per chart review, he may be drinking more than that. Other than that, he denies any nausea, vomiting, fevers, chills, hematemesis, melena, hematochezia, abdominal pain, or odynophagia. He does occasionally have some dysphagia primarily with larger pills, but has no difficulty eating food or drinking liquids. Upon talking with the patient's nurse, who had a conversation with his sister, his sister adds that the patient is known to confabulate and that "you cannot trust anything coming out of his mouth." REVIEW OF SYSTEMS: A 10-category review of systems was obtained with all responses negative except for the pertinent positives as listed in HPI. PAST MEDICAL HISTORY: As per HPI. PAST SURGICAL HISTORY: None. FAMILY HISTORY: Denies any GI malignancies. SOCIAL HISTORY: Denies any tobacco or illicit drug use, but drinks approximately 1 to 2 drinks per day with prior heavy use in the past (although the patient would not quantify). OUTPATIENT MEDICATIONS: Reviewed. ALLERGIES: NO KNOWN DRUG ALLERGIES. PHYSICAL EXAMINATION: VITAL SIGNS: Temperature 97.9, pulse 89, blood pressure 117/80, respiratory rate 20, saturating 95% on room air. GENERAL: The patient was lying in bed, in no acute distress, alert and oriented x4. HEENT: Normocephalic and atraumatic. NECK: Supple. No JVD or scleral icterus noted. CARDIOVASCULAR: Regular rate and rhythm with no discernible murmurs, gallops, or rubs. RESPIRATORY: Clear to auscultation bilaterally with no discernible wheezes or rales. ABDOMEN: Normoactive bowel sounds. Mildly tense to palpation. Significant abdominal distention with positive shifting dullness. No tenderness to palpation. EXTREMITIES: All extremities were cachectic in appearance with no cyanosis, clubbing or edema. LABORATORY DATA: CBC with a white blood cell count of 5.5, hemoglobin 8.7, hematocrit 25.2, platelets 207. INR 1.2. Chemistry with sodium 121, potassium 3.3, chloride 83, CO2 of 29, BUN 12, creatinine 0.95, glucose 97, AST 30, ALT 7, alkaline phosphatase 92, total bilirubin 1.2, albumin 2.6. Calculated MELD score of approximately 21, likely driven because of his hyponatremia. IMAGING DATA: Abdominal ultrasound was obtained on 08/22/2020, which showed [id number] ascites with the patient appearing to have adequate fluid for paracentesis (although it was unclear if the patient actually underwent paracentesis today). ASSESSMENT AND PLAN: The patient is a 55-year-old male with past medical history of presumably alcoholic cirrhosis, complicated by ascites, presenting with worsening ascites and hyponatremia. 1. Cirrhosis with ascites. The patient is presenting with a significant alcohol abuse history since the patient was "16 years old." Currently, he states he drinks about 1 to 2 drinks per day, but has been drinking more heavily in the more recent past ever since the of his 6 months ago. Around 6 months ago was also around the same time that the patient was initially diagnosed with cirrhosis of the liver when admitted to the hospital for his hyponatremia at that time. On discharge, he did not follow up with his primary care physician nor has he been compliant with medications prescribed/recommended. He continues to drink alcohol daily and has a diet that is fairly salt rich, which could further contribute to the ascites formation. Currently presenting with decompensated disease with a calculated MELD score of 21 and Child Sosa classification A/B. At this time, the patient does not appear to have any evidence of SBP, although the patient's abdomen is significantly distended and would benefit from a larger volume paracentesis. Recommendations;. a. Would progress with full liver workup for evaluation of any other underlying abnormalities that would contribute to cirrhosis of the liver. b. Recommend paracentesis with obtaining a fluid albumin to evaluate for possible portal hypertension. Would also proceed with a larger volume tap at that time if possible. c. Strongly recommend alcohol cessation. d. The patient will ultimately need EGD and colonoscopy as an outpatient for screening for esophageal varices and colorectal cancer respectively, but this can be performed as an outpatient. e. Would continue to trend the patient's LFTs and INR daily for signs of worsening liver dysfunction. f. While the patient may be a poor historian, he does not exhibit any evidence of hepatic encephalopathy, so lactulose is not indicated at this time. 2. Hyponatremia. The patient was admitted to the hospital approximately 6 months ago with significant hyponatremia and diagnosed with beer drinker potomania. He responded well to IV fluid resuscitation and was ultimately discharged to home on diuretic management. The patient shortly after discharge went back to drinking a significant amount of alcohol, which could further lend itself towards continued hypo-osmolar hyponatremia/beer drinker potomania. Recommendations;. a. Would defer to primary service about evaluation of the patient's hyponatremia, although IV fluid is not reasonable at this time. b. We would discontinue any diuretics for the short term given his significant hyponatremia. We will continue to follow. Please call with any questions. Job ID: [id number]
[2020-08-23] MEDS: Famotidine/PF 20 mg/2ml Vial SLOW IVP SCH (09:06)
[2020-08-23] MEDS: Spironolactone 100 MG TAB PO SCH (09:06)
[2020-08-23] MEDS ORDERED: Sodium Bicarbonate 2.5 MEQ/5 ML VIAL ONE (09:48)
[2020-08-23] MEDS ORDERED: Lidocaine 1% PF 5 ML VIAL ONE (09:48)
[2020-08-23 09:58] LABS: #Monocytes 0.2 thou/uL (0.11-0.59); #Neutrophils 3.6 thou/uL (1.40-6.50); %Basophils 0.4 % (0.0-1.0); %Eosinophils 0.5 % (0.0-10.0); %Lymphocytes 20.4 % (21.0-51.0); %Monocytes 4.8 % (0.0-10.0); %Neutrophils 73.9 % (42.0-75.0); Hemoglobin 10.2 g/dL (14.0-18.0); Mean Corpuscular HGB CONC 33.8 g/dL (32.0-36.0); Mean Corpuscular Hemoglobin 33.5 pg (27.0-31.0); Mean Corpuscular Volume 99.3 fL (78.0-98.0); Mean Platelet Volume 6.5 fL (7.4-10.4); Platelet Count 260 thou/uL (130-400); RBC Distribution Width 12.2 % (11.5-14.5); Red Blood Cell (RBC) Count 3.05 mill/uL (4.70-6.10); White Blood Cell (WBC) Count 4.9 thou/uL (4.8-10.8)
--- NOTE | 2020-08-23 10:01 | CON ---
DATE OF CONSULTATION: 08/23/2020 HISTORY OF PRESENT ILLNESS: Mr. Salazar is a 55-year-old white male with known history of cirrhosis of the liver/ascites and was admitted due to a fall and generalized weakness as well complaining of right leg pain. He has also progressive abdominal swelling. He was previously seen by Dr. Jimenez for the hyponatremia. This hyponatremia is chronic in nature and most likely related to the alcohol intake of the patient. A free water restriction has been ordered. In addition, the plan is for him to undergo paracentesis. The plan is to also give him albumin infusion. REVIEW OF SYSTEMS: Positive for right leg pain. No chest pain or shortness of breath. No nausea. No vomiting. Positive for abdominal fullness. No syncopal episode. No diarrhea. No constipation. No fever or chills. No headache. No nausea. No vomiting. No hematochezia. No melena. MEDICATIONS: Medications currently on; 1. Ceftriaxone 1 g q.24 hours. 2. [place] 5/325 q.4 p.r.n. 3. Zofran p.r.n. Home medications included; 1. Furosemide 40 mg tablet once a day. 2. Spironolactone 100 mg daily. PAST MEDICAL HISTORY: Includes the following; 1. History of chronic alcohol use. 2. ? Of cirrhosis. PAST SURGICAL HISTORY: Denies any surgeries. SOCIAL HISTORY: The patient is a , lives alone, two children. Positive use of alcohol. No nausea. No vomiting. Denies any IV drug use. Denies any blood transfusion. Education, high school. Currently, not working. Lives in [place]. ALLERGIES: NONE. TRAUMA: None. IMMUNIZATIONS: Unknown. HOSPITALIZATIONS: Please see past medical history. PHYSICAL EXAMINATION: VITAL SIGNS: Blood pressure is 104/71, heart rate 75, respiratory rate 14, temperature 97.5, and O2 saturation 95%. GENERAL: The patient is awake, alert, and comfortable, not in overt distress. SKIN: Adequate turgor. HEENT: He has slightly pale conjunctivae. Anicteric sclerae. NECK: No neck mass. No carotid bruits. No JVD. CHEST: No deformities. LUNGS: Clear breath sounds. No wheezing. No crackles. HEART: Normal sinus rhythm. No murmur. No gallops. No rubs. ABDOMEN: Globular, soft, and nontender. No masses. Please note he has significant ascites. EXTREMITIES: No edema. No deformities. LABORATORY DATA: Laboratories of August 22, 2020, abdominal ultrasound showed [id number] ascites. August 22, 2020, white count 5.5 and hemoglobin 8.7. Sodium 121, potassium 3.3, chloride 83, carbon dioxide 29, BUN 12, creatinine 0.95, AST 30, ALT 7, and albumin 2.6. August 21, 2020, sodium 120. ASSESSMENT AND PLAN: 1. Chronic hyponatremia - this is probably related to his underlying cirrhosis and alcohol intake. We will agree to free water restriction. I feel that the free water restriction and discontinuation of alcohol will help improve the serum sodium. I do not find any indication for any hypertonic saline at the present time. In addition, the patient has a planned large volume paracentesis. He will need albumin infusion to help optimize hemodynamics. Please note, this patient is mentating well. For that reason, hypertonic saline is not indicated. 2. Ascites ? Cirrhosis - according to the patient, he has been exposed to hepatitis C in the past. Cirrhosis may be related to alcohol intake. Agree with current management. Job ID: [id number]
[2020-08-23 10:06] LABS: INR-International Normal Ratio 1.2; Prothrombin Time 15.6 sec (12.0-14.7)
[2020-08-23 10:36] LABS: ALT (SGPT) 9 U/L (8-55); AST (SGOT) 38 U/L (5-34); Albumin 3.1 g/dL (3.5-5.0); Alkaline Phosphatase 90 U/L (40-110); Anion Gap 15 mmol/L (10-20); BUN (Urea Nitrogen) 11 mg/dL (8.4-25.7); Bilirubin, Total 1.5 mg/dL (0.2-1.2); Calc. Creatinine Clearance 73 mL/min (70-130); Calcium 8.8 mg/dL (7.8-10.44); Carbon Dioxide 31 mmol/L (22-29); Chloride 81 mmol/L (98-107); Globulin 4.8 g/dL (2.4-3.5); Glucose 95 mg/dL (70-105); Potassium 3.8 mmol/L (3.5-5.1); Protein, Total 7.9 g/dL (6.0-8.3); Sodium 123 mmol/L (136-145)
--- NOTE | 2020-08-23 10:47 | PRG ---
DATE OF SERVICE: 08/23/2020 REASON FOR CONSULTATION: Ascites with probable cirrhosis of the liver. SUBJECTIVE: The patient did not have any acute events or problems overnight. He is slated to have a paracentesis this morning. Otherwise, he currently denies any nausea, vomiting, fevers, chills, hematemesis, melena, or hematochezia. OBJECTIVE: VITAL SIGNS: Temperature 97.9, pulse 75, blood pressure 104/71, respiratory rate 14, saturating 95% on room air. GENERAL: The patient was lying in bed, in no acute distress. Alert and oriented x4. CARDIOVASCULAR: Regular rate and rhythm. RESPIRATORY: Clear to auscultation bilaterally. ABDOMEN: Normoactive bowel sounds. [id number] tense to palpation. Significant abdominal distention with positive shifting dullness and positive fluid wave. No tenderness to palpation. EXTREMITIES: All extremities were cachectic in appearance with no cyanosis, clubbing or edema. LABORATORY DATA: No current studies are available for review (labs have been ordered for this morning). IMAGING DATA: No current GI imaging is available for review. ASSESSMENT AND PLAN: The patient is a 55-year-old male with past medical history of presumably alcoholic cirrhosis complicated by ascites presenting with worsening ascites and hyponatremia. Cirrhosis with ascites. The patient is presenting with a significant alcohol history, most likely contributing to cirrhotic morphology and ascites formation. However, on review of the patient's labs, he does have a normal platelet count, which leans away from portal hypertension. Currently presenting with decompensated disease with a calculated MELD score of 21 and Child Sosa classification A/B. At this time, the patient does not appear to have any evidence of spontaneous bacterial peritonitis, although the patient does have significant ascites on physical examination and would benefit from a larger volume paracentesis. RECOMMENDATIONS: 1. We will plan for full liver workup for evaluation of any underlying abnormalities. 2. Paracentesis to be performed today. 3. Strongly recommend alcohol cessation. 4. The patient will ultimately need an EGD and colonoscopy for screening purposes, but this can be performed as an outpatient. 5. We will continue to trend the patient's LFTs and INR daily. 6. Hyponatremia. The patient is again presenting with significant hyponatremia, similar to when he came to the hospital 6 months ago. Given his recent alcohol history, beer drinker's potomania is within the realm of possibility; however other underlying abnormality should be considered. RECOMMENDATIONS: 1. I agree with nephrology consultation for evaluation of his hyponatremia. 2. We would continue to hold diuretics given his significant hyponatremia. 3. We will continue to follow. Job ID: [id number]
--- NOTE | 2020-08-23 10:52 | ULT ---
Ultrasound-guided paracentesis: HISTORY: Symptomatic ascites FINDINGS: Informed consent obtained prior to the procedure. Preprocedural imaging demonstrated intrap eritoneal free fluid. An area was marked in the Right lower quadrant , and then meticulously prepped and draped in normal s terile fashion and anesthetized with 1% buffered lidocaine. With direct sonographic guidance, a 19-gauge needle and 5 [place] catheter were advanced into the abdomen. After the return of fluid, the catheter was advanced, and the needle was removed. Approximately 4 L of clear straw-colored fluid was aspirated. The introducer sheath was removed, and hemostasis was achieved with direct pressure. A dry sterile dressing was placed. The patient tolerated the procedure well and without immediate complication. IMPRESSION: Technically successful ultrasound-guided paracentesis.
[2020-08-23 12:23] LABS: RBC Count-Automated (BF) 88 /cu.mm; WBC/Nucleated-Auto (BF) 66 uL
[2020-08-23 12:25] LABS: BF Color Yellow; Body Fluid Source Ascites Body Fluid; Clarity Hazy (Clear); Tube # EDTA
[2020-08-23 12:53] LABS: BF Segmented Neutrophils 2 %; Cell Count Non Hematic 50 %; Lymphocytes 48 %
--- NOTE | 2020-08-23 13:36 | PDOC.HOSPP ---
- Subjective Encounter Date: 08/23/20 Encounter Time: 13:00 Subjective: had paracentesis this morning, no abd pain or sob or dizziness wants to eat - Objective Vital Signs & Weight: Vital Signs (12 hours) Temp Pulse Resp BP Pulse Ox 08/23/20 11:11 97.7 F 93 16 90/63 98 08/23/20 07:10 97.9 F 75 14 104/71 95 08/23/20 03:28 97.9 F 83 16 116/81 97 Weight Weight 126 lb 1.6 oz I&O: 08/22/20 08/23/20 08/24/20 06:59 06:59 06:59 Intake Total 880 340 Balance 880 340 Result Diagrams: 08/23/20 09:15 08/23/20 09:15 Hospitalist ROS - Medication Medications: Active Medications Generic Name Dose Route Start Last Admin Trade Name Freq PRN Reason Stop Dose Admin Hydrocodone Bitart/Acetaminophen 1 tab 08/22/20 03:06 08/22/20 19:49 Hydrocodone/Acetaminophen 5/325 Mg Tablet PO 1 tab Q4H PRN Administration Moderate Pain (4-6) Ceftriaxone Sodium 1 gm/ 100 mls @ 200 mls/hr 08/21/20 23:59 08/22/20 23:00 Sodium Chloride IVPB 100 mls Q24HR BHUMIKA Administration Spironolactone 100 mg 08/22/20 09:00 08/22/20 09:21 Spironolactone 100 Mg Tab PO 100 mg DAILY BHUMIKA Administration - Exam General Appearance: awake alert, ill appearing Eye: anicteric sclera ENT: no oropharyngeal lesions, dry oral mucosa Neck: supple, no JVD Heart: RRR, no murmur Respiratory: no wheezes, no rales Gastrointestinal: soft, normal bowel sounds, distended Extremities: no cyanosis, no edema Neurological: cranial nerve grossly intact, no focal deficits Psychiatric: A&O x 3 Hosp A/P (1) Alcoholic cirrhosis of liver with ascites Code(s): K70.31 - ALCOHOLIC CIRRHOSIS OF LIVER WITH ASCITES Status: Acute (2) Anemia Code(s): D64.9 - ANEMIA, UNSPECIFIED Status: Chronic Qualifiers: Anemia type: other cause (3) Hypokalemia Code(s): E87.6 - HYPOKALEMIA Status: Resolved (4) Hyponatremia Code(s): E87.1 - HYPO-OSMOLALITY AND HYPONATREMIA Status: Acute - Plan had paracentesis with removal of 4 liters fluid, await cell count, chemistries. hep C was -ve in march, will obtain complete hepatitis panel counselled regarding complete cessation of alcohol await ascitic fluid w/u is on ceftriaxone and spironolactone, will add nadolol when BP improves albumin infusions x 4 post paracentesis hypotension alb is 2.6, inr is 1.1, sod is 121, Hb is 8g, platelets are 207. hemostable
[2020-08-23] MEDS: Albumin 25% 25 GM/100 ML BOT IVPB SCH ×2 (15:01→21:01)
[2020-08-23] MEDS: HYDROcodone/Acetaminophen 5/325 mg Tablet PO PRN (18:52)
[2020-08-23 22:22] LABS: Bacteria/HPF None Seen HPF (None Seen); Bilirubin Negative (Negative); Blood, Urine Negative (Negative); Clarity Clear (Clear); Glucose, Urine (Dipstick) Normal (Negative); Ketone, Urine Negative (Negative); Leukocyte Negative Leu/uL (Negative); Nitrite Negative (Negative); Protein, Urine (Dipstick) Negative (Neg-Trace); RBC/HPF None Seen HPF (0-3); Specific Gravity, Urine 1.019 (1.002-1.036); Squamous Epithelial None Seen HPF (0-3); WBC/HPF 0-3 HPF (0-3)
[2020-08-23 22:50] LABS: Creatinine, Urine 122.23 mg/dL (63-166)
[2020-08-24] MEDS: cefTRIAXone\\ROCEPHIN 1 GM in Sodium Chloride 0.9% 100 ML IVPB SCH (00:24)
[2020-08-24] MEDS: Albumin 25% 25 GM/100 ML BOT IVPB SCH ×2 (02:24→08:12)
[2020-08-24 06:22] LABS: HBSAB Concentration Less than 8.00 mIU/mL; Hep B Core Total Ab Non-Reactive (NonReactive); Hep B Core Total Index 0.06 S/CO (0-0.79); Hep B Surf AB Non-Reactive (NonReactive); Hep B Surf Ag Non-Reactive S/CO (NonReactive)
[2020-08-24 07:03] LABS: Anion Gap 15 mmol/L (10-20); BUN (Urea Nitrogen) 9 mg/dL (8.4-25.7); Calc. Creatinine Clearance 78 mL/min (70-130); Calcium 8.6 mg/dL (7.8-10.44); Carbon Dioxide 29 mmol/L (22-29); Chloride 86 mmol/L (98-107); Glucose 92 mg/dL (70-105); Potassium 3.6 mmol/L (3.5-5.1); Sodium 126 mmol/L (136-145)
[2020-08-24] MEDS: Spironolactone 25 MG TAB PO SCH ×2 (08:10→16:13)
[2020-08-24] MEDS: HYDROcodone/Acetaminophen 5/325 mg Tablet PO PRN ×2 (08:10→19:09)
--- NOTE | 2020-08-24 10:50 | PRG ---
DATE OF SERVICE: 08/24/2020 SUBJECTIVE: Mr. Salazar is a 55-year-old white male who was seen for his hyponatremia. This is related to his alcohol intake. His alcohol has been discontinued. In addition, he has been placed on a free water restriction. He also has undergone therapeutic paracentesis. He is feeling better this morning. No other complaints. OBJECTIVE: VITAL SIGNS: Blood pressure 133/75, heart rate 88, respiratory rate 16, temperature 98, O2 saturation is 98%. GENERAL: He is noted to be awake, alert, comfortable, not in distress. LungsL Clear breath sounds, no wheezing Heart: NSR, no murmur, no gallops, no rubs ABDOMEN: Noted to be globular and positive for ascites. Ext: no edema, no deformities MEDICATIONS: Medications of August 24, 2020, was reviewed. LABORATORY DATA: Laboratories of August 23, 2020; white count 4.9, hemoglobin 10.2. August 24, 2020, sodium 126, potassium 3.6, chloride 86, carbon dioxide 29, BUN 9, creatinine 0.84, calcium 8.6. ASSESSMENT AND PLAN: Hyponatremia secondary to alcohol use. The patient is also on free water restriction with slow improvement of the serum sodium. Serum sodium has improved from 121 to 126. Continue current management. I do not feel that the hypertonic saline is indicated for him. Please note his renal function is within normal. Continuing supportive care. Job ID: [id number] [id number]
[2020-08-24] MEDS: Nadolol 40 MG TAB PO SCH (12:16)
--- NOTE | 2020-08-24 13:41 | PDOC.HOSPP ---
- Subjective Encounter Date: 08/24/20 Encounter Time: 10:30 Subjective: no abd pain or nausea oriented well is ambulating in room without dizziness - Objective Vital Signs & Weight: Vital Signs (12 hours) Temp Pulse Resp BP Pulse Ox 08/24/20 11:22 97.8 F 84 12 95/62 96 08/24/20 07:37 98 F 88 16 113/75 98 08/24/20 04:07 97.8 F 90 16 95/64 96 Weight Admit Weight 126 lb 1.6 oz Weight 126 lb 1.6 oz I&O: 08/23/20 08/24/20 08/25/20 06:59 06:59 06:59 Intake Total 340 220 Balance 340 220 Result Diagrams: 08/23/20 09:15 08/24/20 05:24 Hospitalist ROS - Medication Medications: Active Medications Generic Name Dose Route Start Last Admin Trade Name Freq PRN Reason Stop Dose Admin Hydrocodone Bitart/Acetaminophen 1 tab 08/22/20 03:06 08/24/20 08:10 Hydrocodone/Acetaminophen 5/325 Mg Tablet PO 1 tab Q4H PRN Administration Moderate Pain (4-6) Nadolol 40 mg 08/24/20 09:00 08/24/20 12:16 Nadolol 40 Mg Tab PO 40 mg DAILY BHUMIKA Administration Pantoprazole Sodium 40 mg 08/24/20 09:00 08/24/20 08:10 Pantoprazole 40 Mg Tab PO 40 mg DAILY BHUMIKA Administration Spironolactone 50 mg 08/24/20 08:00 08/24/20 08:10 Spironolactone 25 Mg Tab PO 50 mg BID-WM BHUMIKA Administration - Exam General Appearance: awake alert, ill appearing Eye: PERRL, anicteric sclera ENT: no oropharyngeal lesions, moist mucosa Neck: supple, no JVD Heart: RRR, no murmur Respiratory: no wheezes, no rales Gastrointestinal: soft, normal bowel sounds, distended Gastrointestinal - other findings: ascites++ Extremities: no cyanosis, no edema Neurological: cranial nerve grossly intact, no focal deficits Psychiatric: normal affect, A&O x 3 Hosp A/P (1) Alcoholic cirrhosis of liver with ascites Code(s): K70.31 - ALCOHOLIC CIRRHOSIS OF LIVER WITH ASCITES Status: Acute (2) Anemia Code(s): D64.9 - ANEMIA, UNSPECIFIED Status: Chronic Qualifiers: Anemia type: other cause (3) Hypokalemia Code(s): E87.6 - HYPOKALEMIA Status: Resolved (4) Hyponatremia Code(s): E87.1 - HYPO-OSMOLALITY AND HYPONATREMIA Status: Acute - Plan had paracentesis with removal of 4 liters fluid 08/23 hep C was -ve in march currently pending, hep B serology is -ve for infection, will need hep B vaccine to be given as outpt? counselled regarding complete cessation of alcohol is on nadolol and spironolactone, sbp around 90-110 without symptoms albumin infusions x 4 post paracentesis for hypotension alb is 2.6, inr is 1.1, sod is 126, Hb is 8g, platelets are 207. yissel mcallister plan in am
[2020-08-25 06:47] LABS: Anion Gap 10 mmol/L (10-20); BUN (Urea Nitrogen) 8 mg/dL (8.4-25.7); Calc. Creatinine Clearance 89 mL/min (70-130); Calcium 8.3 mg/dL (7.8-10.44); Carbon Dioxide 28 mmol/L (22-29); Chloride 87 mmol/L (98-107); Glucose 90 mg/dL (70-105); Potassium 3.4 mmol/L (3.5-5.1); Sodium 122 mmol/L (136-145)
--- NOTE | 2020-08-25 07:16 | PRG ---
DATE OF SERVICE: 08/24/2020 SUBJECTIVE: Mr. Salazar had a paracentesis yesterday. There were no signs of SBP. He still complains of his knee pain. He had a fall before admission. He is without complaints otherwise. MEDICATIONS: 1. P.r.n. hydrocodone. 2. Nadolol. 3. Zofran. 4. Protonix. 5. Aldactone 50 mg b.i.d. OBJECTIVE: VITAL SIGNS: Temperature is 97.9, pulse 91, and blood pressure 110/68. GENERAL: He is thin, cachectic. LUNGS: Clear. HEART: Regular without clicks or murmurs. ABDOMEN: Soft and protuberant. Shifting dullness, fluid wave. EXTREMITIES: Right knee is tender. Complains of pain about the knee. LABORATORY DATA: Today's sodium is 126, potassium 3.6, BUN and creatinine 9 and 0.8, bilirubin is 1.5, AST 38, ALT 9, albumin 3.1, and protein 7.9. Ascitic fluid, white count 66, lymphocytes 48, albumin 2, protein 3.7. Immunoglobulins normal. Hepatitis A, B, and C are negative. COVID negative on not checked here. Paracentesis yesterday [address], no PE, bilateral effusions, ascites. Abdominal ultrasound, hepatomegaly and contracted gallbladder. TSH was normal. Negative proteinuria. ASSESSMENT: 1. Likely alcoholic liver disease. 2. Continued alcohol abuse. 3. Hyponatremia secondary to beer potomania. 4. Serum ascitic albumin gradient 1.1 on day of paracentesis. No evidence of SBP. RECOMMENDATIONS: 1. Low-sodium diet. Await remainder of hepatic workup. 2. The patient can follow up in the office after discharge. We will sign off at this time. Please call if I can be of any further assistance in the patient's care. Job ID: [id number]
[2020-08-25] MEDS: Nadolol 40 MG TAB PO SCH (09:00)
[2020-08-25] MEDS: Spironolactone 25 MG TAB PO SCH ×2 (09:00→17:22)
[2020-08-25] MEDS: HYDROcodone/Acetaminophen 5/325 mg Tablet PO PRN (09:02)
--- NOTE | 2020-08-25 09:40 | PRG ---
DATE OF SERVICE: 08/25/2020 SUBJECTIVE: Mr. Salazar is a 55-year-old white male, who was admitted for generalized malaise. He was found to have an ascites and has undergone paracentesis. His abdominal fullness much improved. We are following up this patient for his chronic hyponatremia. Serum sodium has been fluctuating. Most recent serum sodium was 122 and prior to this was 126. Again, re-emphasizing the patient on free water restriction. We are somewhat limited in giving the medications for his hyponatremia due to the fact that the patient may be some degree of volume overload from the ascites. In addition, he also has most likely an underlying cirrhosis. No other complaints today. He is feeling better. Review of his serum sodium shows that he has chronic hyponatremia. Re-emphasizing this patient the importance of free water restriction. However, he has some compliance issues in the past. No complaints of chest pain or shortness of breath. OBJECTIVE: VITAL SIGNS: Blood pressure 106/70, heart rate 66, respiratory rate 18, temperature 98.1, and O2 saturation 95%. GENERAL: Noted to be awake, alert, comfortable, not in overt distress. SKIN: Adequate turgor. HEENT: Pinkish conjunctivae. Anicteric sclerae. No neck mass. No carotid bruits. No JVD. CHEST: No deformities. LUNGS: Clear breath sounds. No wheezing. No crackles. HEART: Normal sinus rhythm. No murmurs, gallops, or rubs. ABDOMEN: Globular, soft, nontender. No masses. EXTREMITIES: No edema. No deformities. MEDICATIONS: Medications of August 25, 2020, were reviewed. LABORATORY DATA: Laboratories of August 25, 2020; sodium 122, potassium 3.4, chloride 87, carbon dioxide 28, BUN 8, creatinine 0.74, glucose 90, calcium 8.3. ASSESSMENT AND PLAN: 1. Chronic hyponatremia. Continue free water restriction. Case discussed with the hospitalist. The plan is to discharge him on a free water restriction. He will follow up with his primary care doctor, Dr. Smith in [place]. The patient has been counseled in the past regarding alcohol intake-to completely stop this. 2. Cirrhosis, supportive care. Ascites, status post paracentesis. GI following. 3. Agree with current management. Job ID: [id number]
[2020-08-25 11:49] LABS: ANA Symphony (Qualitative) Negative (Negative); ANA Symphony (Quantitative) 0.5 Ratio (< 0.7 Negative); EliA Vaculitis New Method **** NEW METHOD ****; Mitochondrial Ab 1.8 U/mL (<4 Negative); dsDNA IgG Antibody 1.1 IU/mL (<10 Negative)
--- NOTE | 2020-08-25 15:21 | DIS ---
DATE OF ADMISSION: 08/21/2020 DATE OF DISCHARGE: 08/25/2020 DISCHARGE DISPOSITION: To home. PRIMARY DISCHARGE DIAGNOSES: Alcoholic cirrhosis with massive ascites, status post paracentesis with removal of 4 L, ongoing alcohol usage, chronic anemia, hyponatremia secondary to beer potomania, and hypokalemia, resolved. PROCEDURES DONE DURING HOSPITALIZATION: The patient has had paracentesis done on 08/23/2020 with removal of 4 L of clear straw-colored fluid by Interventional Radiology. Ascitic fluid culture shows no growth at 48 hours. H and H 10 and 30, platelet count 260, MCV is 99. INR 1.2, PTT 40, and PT is 15.6. Sodium 122, BUN 8, creatinine 0.7, albumin is 2.6. AST 38, ALT 9, total bilirubin 1.5, alkaline phosphatase 90. Ascitic fluid had 66 WBCs, 88 RBCs, 2% neutrophils, 48% lymphocytes. IgG total 1412, IgA total 458, IgM total 65. NITISH screen was negative. Anti-mitochondrial antibody 1.8, [id number]-kutjmddl IgG antibody 1.1. COVID-19 PCR was negative on 08/22/2020. Hepatitis A antibody total negative. Hepatitis B surface antigen nonreactive. Hepatitis B surface antibody nonreactive. Hepatitis B core total antibody nonreactive. INPATIENT CONSULT: Dr. Allyson Hernandez for Gastroenterology. DISCHARGE MEDICATIONS: 1. Nadolol 40 mg p.o. daily. 2. Spironolactone 50 mg twice daily. ALLERGIES: NO KNOWN DRUG ALLERGIES. DISCHARGE PLAN: The patient to follow up with Dr. Smith in 1 week. BRIEF COURSE DURING HOSPITALIZATION: The patient initially got admitted on the with complaints of increasing abdominal swelling and pain. On arrival, the patient was found to have had massive ascites. He had had ongoing alcohol usage with prior heavy abuse in the past. He has never had paracentesis in the past. The patient had paracentesis with removal of 4 L of fluid with resolution of his abdominal pain. His fluid cell count did not reveal signs of infection. Ascitic fluid culture showed no growth at 48 hours. He was initially on ceftriaxone, which was discontinued. The patient's systolic blood pressure runs between 90 and 110. He was placed on nadolol 40 mg daily and spironolactone 50 mg twice daily. He is tolerating these with no dizziness and is ambulating. Mr. Salazar still has some ascites. He will be scheduled for elective paracentesis on the by Interventional Radiology. The patient needs to follow up with his primary care physician, Dr. Smith, in a week. He has been strongly counseled multiple times for complete cessation of alcohol. If he improves, the patient might be a candidate for liver transplant and needs a referral via Gastroenterology outpatient followups. The patient is also a candidate for hepatitis B vaccine, which needs to be given at his primary care physician's office. The patient has very poor insight into all of these. Please fax a copy of this to Dr. Smith. He is ambulating and eating well prior to discharge. Please note, I have seen and examined the patient on the day of discharge. Job ID: [id number]
[2020-08-25 16:45] VITALS: BP 97/66; TEMP 97.6
== END 2020-08-25 17:43 | disposition home or self-care (01) | DRG 433 ==
LOC: SURG A 20:24 → OBSVTOIN 20:24 → T4-B 08-24 18:31
PROVIDERS: ADMIT Family Medicine; ATTEND Internal Medicine
PROC: 0W9G3ZZ Drainage of Peritoneal Cavity, Percutaneous Approach (ICD-10-PCS; principal; 2020-08-23)
DX: K70.31 Alcoholic cirrhosis of liver with ascites (principal); E87.1 Hypo-osmolality and hyponatremia; Z20.828 Contact with and (suspected) exposure to other viral communicable diseases; E87.6 Hypokalemia; F10.20 Alcohol dependence, uncomplicated; E83.42 Hypomagnesemia; D64.9 Anemia, unspecified; Z79.899 Other long term (current) drug therapy
CPT/HCPCS: 36415; 49083; 76705; 80048; 80053; 81001; 82042; 82103; 82390; 82570; 83516; 84157; 84300; 85025; 85060; 85610; 85730; 86038; 86225; 86704; 86706; 86708; 87070; 87205; 87340; 87635; 89051; J0696; J3490; P9047; S0028; U0003

== ENCOUNTER 2020-09-15 12:14 | Day surgery (SDC) | payer SELFPAY ==
[2020-09-07 12:43] VITALS: BMI 20.3
[~2020-09-15 12:14] MED LIST changes: +FLU VACC QS2020-21(6MOS UP)/PF 60 MCG/0.5 ML SYRINGE IM ONE; -Iopamidol-370 76% 500 ML 1 ML ONE
[2020-09-15] MEDS ORDERED: Lidocaine 1% PF 5 ML VIAL ONE (12:33)
[2020-09-15 13:55] VITALS: BP 109/73; TEMP 97.9
--- NOTE | 2020-09-15 14:59 | ULT ---
Paracentesis sonographic guided HISTORY: Symptomatic ascites. FINDINGS: After explaining the procedure and answering all questions, sonographic survey showed a lar ge amount of free fluid throughout the abdomen. Sterile technique, buffered local anesthesia, sonographic guidance, and a right lateral approach were used to carefully advance a 19-gauge Yueh needle and catheter into the free fluid. Catheter was left to drain a total volume of 5.0 L clear yellow liquid. Patient was limited to 5 L given that high-volume tolerance has not yet been proven. Catheter was removed with moderate amount of fluid remaining. Patient tolerated the procedure well an d was dismissed in good condition. IMPRESSION : Technically successful sonographic guided paracentesis 5.0 L with moderate residual.
== END 2020-09-15 13:42 | disposition home or self-care (01) ==
LOC: ULT 12:14
PROVIDERS: ATTEND Internal Medicine
PROC: 0W9G3ZZ Drainage of Peritoneal Cavity, Percutaneous Approach (ICD-10-PCS; principal; 2020-09-15)
PROC: BW40ZZZ Ultrasonography of Abdomen (ICD-10-PCS; principal; 2020-09-15)
DX: K74.60 Unspecified cirrhosis of liver (principal); R18.8 Other ascites; D64.9 Anemia, unspecified; F10.10 Alcohol abuse, uncomplicated; N19 Unspecified kidney failure
CPT/HCPCS: 49083

== ENCOUNTER 2020-10-10 14:21 | Emergency (ER) | payer MEDICAID, SELFPAY ==
[2020-10-10 15:38] LABS: #Lymphocytes 0.9 thou/uL (1.20-3.40); #Monocytes 0.1 thou/uL (0.11-0.59); #Neutrophils 2.5 thou/uL (1.40-6.50); %Basophils 0.6 % (0.0-1.0); %Eosinophils 0.5 % (0.0-10.0); %Lymphocytes 24.6 % (21.0-51.0); %Monocytes 3.4 % (0.0-10.0); %Neutrophils 71.1 % (42.0-75.0); Hemoglobin 9.4 g/dL (14.0-18.0); Mean Corpuscular HGB CONC 33.4 g/dL (32.0-36.0); Mean Corpuscular Volume 95.6 fL (78.0-98.0); Mean Platelet Volume 6.7 fL (7.4-10.4); Platelet Count 164 thou/uL (130-400); RBC Distribution Width 13.5 % (11.5-14.5); Red Blood Cell (RBC) Count 2.92 mill/uL (4.70-6.10); White Blood Cell (WBC) Count 3.5 thou/uL (4.8-10.8)
--- NOTE | 2020-10-10 15:56 | RAD ---
RADIOGRAPH CHEST 1 VIEW: DATE: 10/10/2020 TIME: 3:25 PM HISTORY: 55-year-old male with generalized weakness COMPARISON: 03/17/2020 FINDINGS: There are new bilateral pleural effusions, right greater than left, causing haziness of the bilateral lower lung zones, partially obscuring right lung base. No cardiomegaly or mediastinal widening. Upper lobes are clear. No pneumothorax. IMPRESSION: Bilateral pleural effusions, right greater than left.
[2020-10-10 15:57] LABS: INR-International Normal Ratio 1.3; PTT 42.6 sec (22.9-36.1); Prothrombin Time 16.9 sec (12.0-14.7)
[2020-10-10 16:00] LABS: ALT (SGPT) Less than 7 U/L (8-55); AST (SGOT) 22 U/L (5-34); Albumin 2.5 g/dL (3.5-5.0); Alkaline Phosphatase 80 U/L (40-110); Anion Gap 15 mmol/L (10-20); BUN (Urea Nitrogen) 11 mg/dL (8.4-25.7); Bilirubin, Total 2.4 mg/dL (0.2-1.2); Calc. Creatinine Clearance 0 mL/min (70-130); Calcium 7.7 mg/dL (7.8-10.44); Carbon Dioxide 24 mmol/L (22-29); Chloride 94 mmol/L (98-107); Globulin 4.7 g/dL (2.4-3.5); Glucose 101 mg/dL (70-105); Lipase 30 U/L (8-78); Protein, Total 7.2 g/dL (6.0-8.3); Sodium 130 mmol/L (136-145)
[2020-10-10 16:05] LABS: Potassium 2.8 mmol/L (3.5-5.1)
[2020-10-10] MEDS ORDERED: Potassium Chloride 20 MEQ TAB ONE (16:15)
[2020-10-10 18:31] LABS: Bacteria/HPF None Seen HPF (None Seen); Bilirubin 1+ (Negative); Blood, Urine Negative (Negative); Clarity Clear (Clear); Glucose, Urine (Dipstick) Normal (Negative); Ketone, Urine 20 mg/dL (Negative); Leukocyte Negative Leu/uL (Negative); Nitrite Negative (Negative); Protein, Urine (Dipstick) 30 mg/dL (Neg-Trace); RBC/HPF 0-3 HPF (0-3); Specific Gravity, Urine 1.026 (1.002-1.036); Squamous Epithelial 0-3 HPF (0-3); Urobilinogen Greater than 12 mg/dL (Less than 2); WBC/HPF 0-3 HPF (0-3); pH, Urine 6.5 (5.0-9.0)
== END 2020-10-10 19:30 | disposition home or self-care (01) ==
LOC: ERS 14:21
DX: E87.6 Hypokalemia (principal); Z79.899 Other long term (current) drug therapy
CPT/HCPCS: 36415; 71045; 80053; 81003; 81015; 82140; 83690; 84484; 85025; 85610; 85730; 86850; 86900; 86901; 93005